=== PATIENT | male | born 1955 | race Hispanic/Latino ===

== ENCOUNTER 2019-06-25 16:12 | Emergency (ER) | payer SELFPAY ==
[2019-06-25 16:33] LABS: #Basophils 0.1 thou/uL (0.0-0.2); #Eosinphils 0.1 thou/uL (0.0-0.7); #Lymphocytes 2.5 thou/uL (1.20-3.40); #Monocytes 0.8 thou/uL (0.11-0.59); #Neutrophils 4.2 thou/uL (1.40-6.50); %Basophils 0.8 % (0.0-1.0); %Eosinophils 1.9 % (0.0-10.0); %Lymphocytes 32.6 % (21.0-51.0); %Monocytes 10.7 % (0.0-10.0); %Neutrophils 54.1 % (42.0-75.0); Hemoglobin 15.4 g/dL (14.0-18.0); Mean Corpuscular HGB CONC 33.6 g/dL (32.0-36.0); Mean Corpuscular Hemoglobin 27.3 pg (27.0-31.0); Mean Corpuscular Volume 81.3 fL (78.0-98.0); Mean Platelet Volume 6.9 fL (7.4-10.4); Platelet Count 236 thou/uL (130-400); RBC Distribution Width 12.3 % (11.5-14.5); Red Blood Cell (RBC) Count 5.64 mill/uL (4.70-6.10); White Blood Cell (WBC) Count 7.8 thou/uL (4.8-10.8)
[2019-06-25] MEDS ORDERED: Lorazepam 2 MG/ML VIAL ONE (16:41)
[2019-06-25 16:43] LABS: ALT (SGPT) 20 U/L (8-55); AST (SGOT) 16 U/L (5-34); Albumin 4.2 g/dL (3.4-4.8); Alkaline Phosphatase 86 U/L (40-110); Anion Gap 14 mmol/L (10-20); BUN (Urea Nitrogen) 13 mg/dL (8.4-25.7); Bilirubin, Total 0.5 mg/dL (0.2-1.2); Calc. Creatinine Clearance 0 mL/min (70-130); Carbon Dioxide 22 mmol/L (23-31); Chloride 106 mmol/L (98-107); Estimated GFR-MDRD 54; Globulin 3.1 g/dL (2.4-3.5); Glucose 80 mg/dL (80-115); Potassium 3.5 mmol/L (3.5-5.1); Protein, Total 7.3 g/dL (5.8-8.1); Sodium 138 mmol/L (136-145)
--- NOTE | 2019-06-25 16:47 | RAD ---
RADIOGRAPH CHEST 1 VIEW: DATE: 06/25/2019 HISTORY: 64-year-old male with dyspnea FINDINGS: There are no airspace densities, pulmonary edema, pneumothorax, or cardiomegaly. The lateral costophr enic angles are sharp. IMPRESSION: No acute cardiopulmonary findings.
== END 2019-06-25 17:54 | disposition home or self-care (01) ==
LOC: ERS 16:12
DX: F41.0 Panic disorder [episodic paroxysmal anxiety] (principal); Z79.899 Other long term (current) drug therapy
CPT/HCPCS: 36416; 71045; 80053; 83880; 84484; 85025; 93005; 96374; J2060

== ENCOUNTER 2019-06-26 08:48 | Inpatient (IN) | payer BC ==
[2019-06-26] MEDS ORDERED: Pantoprazole 40 MG VIAL ONE (09:17)
[2019-06-26] MEDS ORDERED: Ondansetron PF 4 MG/2 ML Vial ONE ×2 (09:17→18:00)
[2019-06-26] MEDS ORDERED: Morphine 4 MG/ML VIAL ONE ×3 (09:17→13:05)
[2019-06-26 09:36] LABS: #Eosinphils 0.1 thou/uL (0.0-0.7); #Lymphocytes 1.8 thou/uL (1.20-3.40); #Monocytes 0.6 thou/uL (0.11-0.59); #Neutrophils 5.4 thou/uL (1.40-6.50); %Eosinophils 0.8 % (0.0-10.0); %Lymphocytes 23.3 % (21.0-51.0); %Monocytes 7.2 % (0.0-10.0); %Neutrophils 68.8 % (42.0-75.0); Hemoglobin 15.1 g/dL (14.0-18.0); Mean Corpuscular Hemoglobin 26.9 pg (27.0-31.0); Mean Corpuscular Volume 81.4 fL (78.0-98.0); Platelet Count 224 thou/uL (130-400); RBC Distribution Width 12.4 % (11.5-14.5); Red Blood Cell (RBC) Count 5.62 mill/uL (4.70-6.10); White Blood Cell (WBC) Count 7.9 thou/uL (4.8-10.8)
[2019-06-26 09:59] LABS: ALT (SGPT) 19 U/L (8-55); AST (SGOT) 16 U/L (5-34); Albumin 4.1 g/dL (3.4-4.8); Alkaline Phosphatase 80 U/L (40-110); Anion Gap 10 mmol/L (10-20); BUN (Urea Nitrogen) 15 mg/dL (8.4-25.7); Bilirubin, Total 0.5 mg/dL (0.2-1.2); CK (CPK) 102 U/L (30-200); Calc. Creatinine Clearance 0 mL/min (70-130); Calcium 9.2 mg/dL (7.8-10.44); Carbon Dioxide 24 mmol/L (23-31); Chloride 107 mmol/L (98-107); Estimated GFR-MDRD 66; Globulin 2.9 g/dL (2.4-3.5); Glucose 104 mg/dL (80-115); Lipase 22 U/L (8-78); Potassium 4.4 mmol/L (3.5-5.1); Sodium 137 mmol/L (136-145)
[2019-06-26] MEDS ORDERED: Mag-Al 1200 mg/1200 mg/30 ML UDCUP ONE (10:48)
[2019-06-26] MEDS ORDERED: Lidocaine Viscous Sol 2% 15 ml UD Cup ONE (10:48)
[2019-06-26] MEDS ORDERED: Lorazepam 2 MG/ML VIAL ONE (10:48)
--- NOTE | 2019-06-26 10:53 | CT ---
CT ABDOMEN NONCONTRAST CT PELVIS NONCONTRAST: (Urolithiasis protocol) DATE: 06/26/2019 HISTORY: 64-year-old male with epigastric acute abdominal pain, nausea, and emesis. COMPARISON: None available TECHNIQUE: IV injection of iodinated contrast media: None Oral contrast media: None FINDINGS: Other than for urolithiasis, the lack of IV and oral contrast limits the evaluation. 0.9 cm calcified gallstone at fundus. Several small calcified gallstones in the gallbladder neck, a f ew millimeters in size each. No pericholecystic edema. 1 x 1 cm hepatic cyst in left lobe of liver. 2 x 1 cm cyst in right lobe of liver. No intrahepatic biliary ductal dilation. Within the limitations of a noncontrast scan, no abnormality identified involving bilateral kidneys, abdominal aorta, adrenals, spleen, pancreas, or urinary bladder. Appendix is short. Proximal portion is of normal thickness and has intraluminal gas. Distal portion is thickened to 8 mm, but the re is no definite periappendiceal edema. The cecum is medialized, and therefore the appendix is also slightly medialized. No small bowel dilation. Large number of sigmoid colonic diverticula without compelling evidence of diverticulitis. 2 coarse c alcifications within the left mid abdominal peritoneal cavity. No ascites or pneumoperitoneum. No renal, ureteral, or bladder calculus. No hydronephrosis. No pleural effusion or consolidation at lung bases. IMPRESSION: 1) distal tip of appendix is thickened. Uncertain whether or not this represents a mild, early tip ap pendicitis. Recommend follow-up CT of abdomen and pelvis in 24 to 48 hours if symptoms do not improve. 2) no other potentially acute findings. 3) cholelithiasis including multiple small gallstones in the gallbladder neck, which have the potenti al to obstruct. 4) no urolithiasis or obstructive uropathy. 5) sigmoid colonic diverticulosis without diverticulitis. 6) evidence for benign prostatic hyperplasia (disclaimer: This does not necessarily rule out prostate cancer). 7) other findings as mentioned above.
[2019-06-26] MEDS ORDERED: Piperacillin/Tazobactam 4.5 GM VIAL ONE (12:14)
[2019-06-26 14:46] VITALS: BMI 24.5
[2019-06-26] MEDS ORDERED: Morphine 2 MG/ML SYRINGE SLOW IVP PRN ×2 (15:07→19:30)
[2019-06-26] MEDS ORDERED: Ondansetron PF 4 MG/2 ML Vial IVP PRN ×2 (15:08→19:30)
[2019-06-26] MEDS ORDERED: Ondansetron ODT 4 MG TAB SL PRN (15:08)
[2019-06-26] MEDS ORDERED: D5 1/2 NS w/20 mEq KCL 1,000 ML IV SCH (15:15)
[2019-06-26] MEDS ORDERED: cefOXitin 2 GM in Sodium Chloride 0.9% 100 ML IVPB SCH (15:45)
[2019-06-26] MEDS ORDERED: Fentanyl 100 MCG/2 ML VIAL ONE ×2 (16:41→17:24)
[2019-06-26] MEDS ORDERED: Bupivacaine/Epinephrine 0.25% 30 ML VIAL ONE (16:56)
[2019-06-26] MEDS ORDERED: ePHEDrine 50 MG/ML VIAL ONE (18:00)
[2019-06-26] MEDS ORDERED: Rocuronium Bromide 10 MG/ML (10ML VIAL) ONE (18:00)
[2019-06-26] MEDS ORDERED: Lidocaine 1% PF 5 ML VIAL ONE (18:00)
[2019-06-26] MEDS ORDERED: Dexamethasone 20 MG/5 ML VIAL ONE (18:00)
[2019-06-26] MEDS ORDERED: PROPOFOL 200 MG/20 ML VIAL ONE (18:00)
[2019-06-26] MEDS ORDERED: Piperacillin/Tazobactam 3.375 GM VIAL ONE (19:08)
[2019-06-26] MEDS ORDERED: Dextrose 5% in Water 1,000 ML IV PRN (19:30)
[2019-06-26] MEDS ORDERED: Dextrose 50% Abboject 50 ML SYRINGE SLOW IVP PRN (19:30)
[2019-06-26] MEDS ORDERED: HYDROcodone/Acetaminophen 10/325 mg Tablet PO PRN ×2 (19:30)
[2019-06-26] MEDS ORDERED: hydrALAZINE 20 MG/ML VIAL SLOW IVP PRN (19:30)
[2019-06-26] MEDS ORDERED: Mag-Al 1200 mg/1200 mg/30 ML UDCUP PO PRN (19:30)
[2019-06-26] MEDS ORDERED: Calcium Carbonate 500 MG ChewTAB PO PRN (19:30)
[2019-06-26] MEDS ORDERED: Morphine 4 MG/ML VIAL SLOW IVP PRN (19:30)
[2019-06-26] MEDS ORDERED: Promethazine HCl 25 MG/ML VIAL IM PRN ×2 (19:30→19:32)
[2019-06-26] MEDS ORDERED: PACU-Morphine 4MG/ML VIAL SLOW IVP PRN (19:32)
[2019-06-26] MEDS ORDERED: Ketorolac Tromethamine 30 MG/ML VIAL IVP PRN (19:32)
[2019-06-26] MEDS ORDERED: HYDROmorphone 2 MG/ML VIAL SLOW IVP PRN (19:32)
[2019-06-26] MEDS ORDERED: Meperidine HCl/PF 25 MG/ML VIAL SLOW IVP PRN (19:32)
[2019-06-26] MEDS ORDERED: Promethazine HCl 25 MG/ML VIAL SLOW IVP PRN (19:32)
[2019-06-26] MEDS ORDERED: Ondansetron HCl/PF 4 MG/2 ML Vial IVP PRN (19:32)
[2019-06-26] MEDS ORDERED: Morphine Sulfate 2 MG/ML SYRINGE SLOW IVP PRN (19:32)
[2019-06-26] MEDS ORDERED: HYDROcodone/Acetaminophen 5/325 mg Tablet ONE (20:23)
[2019-06-26] MEDS: Famotidine 20 MG TAB PO SCH (21:15)
[2019-06-26] MEDS: D5 1/2 NS w/20 mEq KCL 1,000 ML IV SCH (21:15)
[2019-06-26] MEDS: Famotidine/PF 20 mg/2ml Vial SLOW IVP SCH (21:15)
--- NOTE | 2019-06-26 21:43 | HP ---
CHIEF COMPLAINT: Mid epigastric abdominal pain. HISTORY OF PRESENT ILLNESS: This is a 64-year-old male with a several year history of intermittent epigastric pain radiating to back, associated with nausea and vomiting. He was diagnosed with H pylori, has been treated multiple times, continues to recur. He said he had a cookie this morning at 6 a.m. His last bowel movement was this morning. PAST MEDICAL HISTORY: Anxiety, H pylori. PAST SURGICAL HISTORY: Left inguinal hernia repair in 2000. MEDICATIONS: 1. Pantoprazole. 2. Proventil. 3. Cindy-[place]. 4. Tums. ALLERGIES: TO IODINE AND SULFA. SOCIAL HISTORY: He is . No tobacco. Social alcohol. 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 FAMILY HISTORY: Noncontributory. PHYSICAL EXAMINATION: VITAL SIGNS: Temperature is 98, pulse 63, blood pressure 110/66. GENERAL: Well-developed, well-nourished male, in no apparent distress. HEENT: Unremarkable. No jaundice. LUNGS: Clear. HEART: Regular rate and rhythm. ABDOMEN: Soft, nondistended, tender in the mid epigastric and right upper quadrant. EXTREMITIES: Unremarkable. LABORATORY DATA: White count 7.9, H and H of 15 and 45, and platelet count 224. Electrolytes are fine. LFTs fine. Ultrasound shows an impacted gallstone in the gallbladder with some distention. There were also noted the tip of his appendix appeared to be enlarged. ASSESSMENT: Acute cholecystitis with abnormal appendix. PLAN: Laparoscopic cholecystectomy with possible appendectomy. CONSENT: I have discussed planned procedure as well as risk of bleeding, infection, injury to bile duct, injury to bowel, need to open. He understands and gives informed consent. Job ID: [id number]
[2019-06-26] MEDS ORDERED: Piperacillin/Tazobactam 4.5 GM in Sodium Chloride 0.9% 100 ML IVPB SCH (22:00)
[2019-06-26] MEDS: Piperacillin/Tazobactam 3.375 GM in Sodium Chloride 0.9% 100 ML IVPB SCH (23:26)
[2019-06-26] MEDS: Ketorolac Tromethamine 30 MG/ML VIAL IVP SCH (23:30)
[2019-06-27] MEDS ORDERED: Tamsulosin HCl 0.4 MG CAP PO SCH ×2 (00:45→09:00)
[2019-06-27 04:49] LABS: #Basophils 0.1 thou/uL (0.0-0.2); #Lymphocytes 0.7 thou/uL (1.20-3.40); #Monocytes 0.4 thou/uL (0.11-0.59); #Neutrophils 9.6 thou/uL (1.40-6.50); %Eosinophils 0.1 % (0.0-10.0); %Lymphocytes 6.7 % (21.0-51.0); %Monocytes 3.2 % (0.0-10.0); %Neutrophils 88.9 % (42.0-75.0); Hemoglobin 13.9 g/dL (14.0-18.0); Mean Corpuscular HGB CONC 33.6 g/dL (32.0-36.0); Mean Corpuscular Hemoglobin 27.4 pg (27.0-31.0); Mean Corpuscular Volume 81.7 fL (78.0-98.0); Mean Platelet Volume 6.9 fL (7.4-10.4); Platelet Count 217 thou/uL (130-400); RBC Distribution Width 12.3 % (11.5-14.5); Red Blood Cell (RBC) Count 5.08 mill/uL (4.70-6.10); White Blood Cell (WBC) Count 10.8 thou/uL (4.8-10.8)
[2019-06-27 05:13] LABS: ALT (SGPT) 31 U/L (8-55); AST (SGOT) 24 U/L (5-34); Albumin 3.7 g/dL (3.4-4.8); Alkaline Phosphatase 65 U/L (40-110); Anion Gap 14 mmol/L (10-20); BUN (Urea Nitrogen) 13 mg/dL (8.4-25.7); Bilirubin, Total 0.8 mg/dL (0.2-1.2); Calc. Creatinine Clearance 77 mL/min (70-130); Calcium 8.3 mg/dL (7.8-10.44); Carbon Dioxide 19 mmol/L (23-31); Chloride 105 mmol/L (98-107); Estimated GFR-MDRD 62; Globulin 2.7 g/dL (2.4-3.5); Glucose 161 mg/dL (80-115); Lipase 16 U/L (8-78); Potassium 4.2 mmol/L (3.5-5.1); Protein, Total 6.4 g/dL (5.8-8.1); Sodium 134 mmol/L (136-145)
[2019-06-27] MEDS: D5 1/2 NS w/20 mEq KCL 1,000 ML IV SCH ×2 (05:47→11:52)
[2019-06-27] MEDS: Piperacillin/Tazobactam 3.375 GM in Sodium Chloride 0.9% 100 ML IVPB SCH ×2 (06:36→11:26)
[2019-06-27] MEDS: Ketorolac Tromethamine 30 MG/ML VIAL IVP SCH ×2 (06:37→11:26)
[2019-06-27] MEDS ORDERED: traMADol HCl 50 MG TAB PO PRN ×2 (07:35→07:36)
[2019-06-27] MEDS: Famotidine 20 MG TAB PO SCH (08:19)
[2019-06-27] MEDS: Famotidine/PF 20 mg/2ml Vial SLOW IVP SCH (08:21)
[2019-06-27] MEDS ORDERED: Enoxaparin Sodium 40 MG/0.4 ML SYRINGE SC SCH (09:00)
[2019-06-27 12:08] VITALS: BP 120/70; TEMP 97.7
--- NOTE | 2019-06-27 12:35 | OP ---
DATE OF PROCEDURE: 06/26/2019 PREOPERATIVE DIAGNOSIS: Symptomatic cholelithiasis with abnormal appendix. PROCEDURE PERFORMED: Laparoscopic cholecystectomy with laparoscopic appendectomy. INDICATIONS: This is a 64-year-old male, who has been having episodic right upper quadrant pain and mid epigastric pain radiating to back, worse after eating, associated with nausea. He has been treated for years now for this as Helicobacter pylori. He seemed to be doing well for about 6 months and now had another bout of it. He came to the emergency room, where CT scan showed a distended thickened wall gallbladder with gallstones as well as an abnormal distal appendix. FINDINGS: He had hydrops of the gallbladder, large stones distended with thickened wall. 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 DESCRIPTION OF PROCEDURE: After informed consent was obtained, the patient was taken to the operating room, given general endotracheal anesthesia, was placed in the supine position. Abdomen was prepped and draped in usual fashion. Local anesthesia infiltrated subcutaneously and deep. A subumbilical incision was performed. Subcu divided sharply. The fascia was grasped with 2 stay sutures of 0 Vicryl placed in each side of midline. Midline incised. Digital palpation revealed no local adhesions. A blunt 12 mm trocar was inserted. Pneumoperitoneum was created to a pressure of 15 mmHg. A 0 degree laparoscope was inserted under direct vision. Three 5 mm ports were placed subcostally. The gallbladder was very inflamed and thickened, distended, had aspirated, 40 mL of clear hydrops gallbladder fluid was removed. This then allowed grasping of the gallbladder and advance superiorly. The peritoneum lysed distally to expose the cystic duct and cystic artery in critical view. The artery and duct were triply ligated with hemoclips and divided. The gallbladder removed from its fossa utilizing electrocautery and then placed in the right gutter. Then, the patient was placed in the Trendelenburg position with the right side up and the cecum when initially found, so I was able to see the transverse colon trace to down and then I could see the ileocecal valve and what appeared to be the base of the appendix. Now, the rest of the appendix was wadded up in this omentum and there was no clear planes. It was dissected out. The mesoappendix was divided utilizing the LigaSure. I had to add a fourth 5 mm port suprapubic to aid with this and then I was able to dissect it down to the base of the appendix. The base of appendix was then divided with the linear 45 mm white load stapler. The appendix and the gallbladder placed in an endosac and removed from the abdomen in the endosac. Then, hemostasis achieved with electrocautery. I did have to put a couple of clips on. There was some ooze from the mesentery of the appendix. The gallbladder area was inspected. There was no bleeding. The abdomen was irrigated. Irrigation fluid removed. Trocars and retractors removed. The fascia was closed with interrupted 0 Vicryl suture. The skin closed with interrupted 4-0 Rapide. Dermabond applied. The patient tolerated the procedure well, transferred to Recovery in good condition. Sponge and needle count verified correct x2. Job ID: [id number]
--- NOTE | 2019-06-27 14:44 | DIS ---
DATE OF ADMISSION: 06/26/2019 DATE OF DISCHARGE: 06/27/2019 DISCHARGE DIAGNOSES: Acute cholecystitis, chronic appendicitis. PROCEDURES DURING ADMISSION: Laparoscopic cholecystectomy, laparoscopic appendectomy. HOSPITAL COURSE: The patient was admitted. CT scan showed an abnormal distal tip of the appendix. He had an ultrasound showing multiple cholelithiasis and also he had thickening of the gallbladder wall. He underwent diagnostic laparoscopy, laparoscopic appendectomy, and laparoscopic cholecystectomy. 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 Postoperatively, he has done well. He feels fine. He is tolerating liquids. His pain is controlled on p.o. medications. He is discharged home on tramadol and hydrocodone and Zofran. He will follow up with me in 2 weeks. Job ID: [id number]
== END 2019-06-27 12:40 | disposition home or self-care (01) | DRG 418 ==
LOC: ERS 08:48 → SURG B 11:20
PROVIDERS: ADMIT Surgery; ATTEND Surgery
PROC: 0FT44ZZ Resection of Gallbladder, Percutaneous Endoscopic Approach (ICD-10-PCS; principal; 2019-06-26)
PROC: 0DTJ4ZZ Resection of Appendix, Percutaneous Endoscopic Approach (ICD-10-PCS; 2019-06-26)
DX: K81.0 Acute cholecystitis (principal); K82.1 Hydrops of gallbladder; K36 Other appendicitis; F41.9 Anxiety disorder, unspecified; Z79.899 Other long term (current) drug therapy; Z88.2 Allergy status to sulfonamides; Z88.8 Allergy status to other drugs, medicaments and biological substances
CPT/HCPCS: 36415; 74176; 80053; 82550; 83690; 84484; 85025; 88304; 93005; 96361; 96365; 96375; 96376; C9113; J1100; J1650; J1885; J2001; J2060; J2270; J2405; J2543; J2704; J3010; J3490; S0028